=== PATIENT | female | born 1955 | race Caucasian/White ===

== ENCOUNTER 2017-01-06 10:15 | Outpatient (CLI) | payer MEDICARE, BC | END 2017-01-06 10:16 | disposition home or self-care (01) | DX: Z12.31 Encounter for screening mammogram for malignant neoplasm of breast (principal) ==

== ENCOUNTER 2017-01-19 15:02 | Outpatient (CLI) | payer MEDICARE, BC | END 2017-01-19 15:03 | disposition home or self-care (01) | DX: E11.65 Type 2 diabetes mellitus with hyperglycemia (principal) ==

== ENCOUNTER 2017-02-18 07:52 | Day surgery (SDC) | payer MEDICARE, BC ==
[~2017-02-18 07:52] MED LIST: PHENYLEPHRINE 2.5% OPHTH 2 ML DROPS ONE
[2017-02-18] MEDS ORDERED: LACTATED RINGERS 500 ML IV ONE (08:06)
[2017-02-18] MEDS ORDERED: PROPARACAINE 0.5% OPHTH DROPS 15 ML OPTH ONE (09:21)
[2017-02-18] MEDS ORDERED: MIDAZOLAM 2 MG/2 ML VIAL IVP ONE (09:23)
[2017-02-18] MEDS ORDERED: fentaNYL 100 MCG/2 ML VIAL IVP ONE (09:23)
[2017-02-18] MEDS ORDERED: BRIMONIDINE 0.2% OPHTH DROPS 5 ML OPTH ONE (09:30)
[2017-02-18] MEDS ORDERED: EPINEPHrine 1 MG/ML AMP IVP ONE (09:30)
[2017-02-18] MEDS ORDERED: CHONDR SULF/HYALURONATE SYRINGE IO ONE (09:31)
[2017-02-18] MEDS ORDERED: BSS/LIDOCAINE/EPINEPHRINE 1 ML SYRINGE IO ONE ×2 (09:34)
[2017-02-18] MEDS ORDERED: TRIAMCIN/MOXIFLOX/VANCO 1 ML VIAL IO ONE ×2 (09:34)
== END 2017-02-18 07:53 | disposition home or self-care (01) ==
PROC: 08RJ3JZ Replacement of Right Lens with Synthetic Substitute, Percutaneous Approach (ICD-10-PCS; principal; 2017-02-18 09:00)
DX: E11.36 Type 2 diabetes mellitus with diabetic cataract (principal); H25.811 Combined forms of age-related cataract, right eye; Z88.2 Allergy status to sulfonamides; I10 Essential (primary) hypertension; E78.00 Pure hypercholesterolemia, unspecified
CPT/HCPCS: 66984; A9270; V2632

== ENCOUNTER 2017-03-25 06:09 | Day surgery (SDC) | payer MEDICARE, BC ==
[2017-03-25] MEDS ORDERED: PHENYLEPHRINE 2.5% OPHTH 2 ML DROPS ONE (06:25)
[2017-03-25] MEDS ORDERED: PROPARACAINE 0.5% OPHTH DROPS 15 ML OPTH ONE ×3 (06:40→07:26)
[2017-03-25] MEDS ORDERED: PHENYLEPHRINE 2.5% OPHTH 2 ML DROPS OPTH ONE (06:40)
[2017-03-25] MEDS ORDERED: KETOROLAC 0.45% OPHTH DROPS OPTH ONE (06:40)
[2017-03-25] MEDS ORDERED: CYCLOPENTOLATE 1% OPHTH DROPS 2 ML OPTH ONE (06:40)
[2017-03-25] MEDS ORDERED: LACTATED RINGERS 500 ML IV ONE (06:51)
[2017-03-25] MEDS ORDERED: MIDAZOLAM 2 MG/2 ML VIAL IVP ONE (07:05)
[2017-03-25] MEDS ORDERED: EPINEPHrine 1 MG/ML AMP IVP ONE ×2 (07:19→07:26)
[2017-03-25] MEDS ORDERED: BRIMONIDINE 0.2% OPHTH DROPS 5 ML OPTH ONE ×2 (07:19→07:26)
[2017-03-25] MEDS ORDERED: BSS/LIDOCAINE/EPINEPHRINE 1 ML SYRINGE IO ONE ×3 (07:20→07:26)
[2017-03-25] MEDS ORDERED: CHONDR SULF/HYALURONATE SYRINGE IO ONE ×2 (07:20→07:26)
[2017-03-25] MEDS ORDERED: TIMOLOL 0.5% OPHTH DROPS OPTH ONE ×2 (07:20→07:26)
[2017-03-25] MEDS ORDERED: TRIAMCIN/MOXIFLOX/VANCO 1 ML VIAL IO ONE ×3 (07:21→07:26)
[2017-03-25 07:59] VITALS: BP 137/83
--- NOTE | 2017-03-25 08:41 | OPERATIVE REPORT ---
DATE OF SURGERY: 03/25/2017 00:00:00 PREOPERATIVE DIAGNOSIS: Visually significant cataract, left eye. Cataract surgery was performed on e right eye on 18 February 2017. POSTOPERATIVE DIAGNOSIS: Visually significant cataract, left eye. Cataract surgery was performed on t right eye on 18 February 2017. NAME OF PROCEDURE: Phacoemulsification posterior chamber intraocular lens implant, left eye, with las er assist. SURGEON: Boris Meyers MD ANESTHESIA: Monitored anesthesia care. COMPLICATIONS: None. OPERATIVE INDICATIONS: This is a 62-year-old woman with progressive vision loss in the left eye due t o 2+ nuclear sclerotic, 1+ cortical, and trace posterior subcapsular cataract. Best corrected visual acuity was 20/20 with glare to 20/50 in the left eye. Indications for surgery were overall decrease i n vision, difficulty seeing words on the computer screen, difficulty reading, difficulty seeing words , closed captions or game scores on TV, difficulty seeing street signs, difficulty driving in low lig ht or at night, difficulty driving at night because of headlights, and difficulty with glare and brig ht lights in any situation. She was consented at length concerning the risks and benefits of cataract surgery after which she expressed a desire to proceed with surgery. OPERATIVE PROCEDURE: The patient was taken to OR #2 and placed under monitored anesthesia care. A tamiko gical time-out was conducted confirming correct patient, correct procedure and correct surgical site. She was placed under the LenSx laser and her eye docked to the laser interface. The laser performed the capsulotomy, lens softening, phaco wounds, and arcuate keratotomy incisions. She was then moved t o the operating microscope, given topical anesthesia, and then prepped and draped in the usual steril e fashion. The eye was entered at the 6- and 3 o'clock positions. Intracameral Shugarcaine was inject ed into the anterior chamber, followed by Viscoat. The capsulorrhexis flap created by the LenSx laser was removed from the anterior chamber. The nucleus was hydrodissected and phacoemulsified. The deuce x was evacuated using automated infusion aspiration. Provisc was injected in the capsular bag and a 1 6.5 diopter intraocular lens inserted into the bag. Approximately 0.8 mm mixture of triamcinolone, mo xifloxacin, and vancomycin was injected subconjunctivally in the superior quadrant for infection and inflammation prophylaxis. I/A was used to evacuate the viscoelastic materials. The eye was inflated t o physiologic pressure using balanced salt solution and found to be watertight. The patient was taken from the operating room in good condition and given postoperative instructions. JOB #: [id number] EXT JOB #:[id number]
== END 2017-03-25 06:10 | disposition home or self-care (01) ==
LOC: SDS 06:09
PROVIDERS: ATTEND Ophthalmology
PROC: 08RK3JZ Replacement of Left Lens with Synthetic Substitute, Percutaneous Approach (ICD-10-PCS; principal; 2017-03-25 07:30)
DX: H25.812 Combined forms of age-related cataract, left eye (principal); E11.9 Type 2 diabetes mellitus without complications; I10 Essential (primary) hypertension; F41.9 Anxiety disorder, unspecified; J45.909 Unspecified asthma, uncomplicated
CPT/HCPCS: 66984; A9270; V2632

== ENCOUNTER 2017-07-21 10:01 | Outpatient (CLI) | payer MEDICARE, BC ==
[2017-07-21 19:12] LABS: BASOPHILS % (AUTO) 0.7 %; EOSINOPHILS # (AUTO) 0.2 10^3/uL (0.0-0.7); EOSINOPHILS % (AUTO) 4.1 %; HCT - HEMATOCRIT 42.4 % (37.0-47.0); HGB - HEMOGLOBIN 14.3 g/dL (12.0-16.0); LYMPHOCYTES # (AUTO) 1.8 10^3/uL (1.5-3.5); LYMPHOCYTES % (AUTO) 31.5 %; MEAN CORPUSCULAR HEMOGLOBIN 28.6 pg (27.0-31.0); MEAN CORPUSCULAR HGB CONC 33.7 g/dL (32.0-36.0); MEAN CORPUSCULAR VOLUME 84.9 fL (81.0-99.0); MEAN PLATELET VOLUME 7.9 fL (7.9-10.8); MONOCYTES # (AUTO) 0.6 10^3/uL (0.0-1.0); MONOCYTES % (AUTO) 10.4 %; NEUTROPHILS # (AUTO) 3.1 10^3/uL (1.5-6.6); NEUTROPHILS % (AUTO) 53.3 %; NUCLEATED RED BLOOD CELLS AUTO 0.1 /100WBC; RED CELL DISTRIBUTION WIDTH 13.5 % (12.0-15.0); UNCORRECTED WHITE BLOOD COUNT 5.7 x10^3/uL; WHITE BLOOD COUNT 5.7 x10^3/uL (4.8-10.8)
[2017-07-21 19:32] LABS: ALBUMIN/GLOBULIN RATIO 1.1 (1.0-2.2); BILIRUBIN,TOTAL 0.4 mg/dL (0.2-1.0); BUN - BLOOD UREA NITROGEN 11 mg/dL (6-20); CALCIUM 9.5 mg/dL (8.5-10.3); CARBON DIOXIDE - CO2 26 mmol/L (21-32); CHLORIDE 103 mmol/L (101-111); CHOL/HDL RATIO 3.7 (<4.4); CHOLESTEROL 154 mg/dL; CREATININE 0.9 mg/dL (0.4-1.0); GFR - MDRD 63 (>89); GLUCOSE 123 mg/dL (70-100); HDL CHOLESTEROL 42 mg/dL; LDL/HDL RATIO 1.9 (<4.4); POTASSIUM 3.8 mmol/L (3.5-5.0); SODIUM 138 mmol/L (135-145); TOTAL PROTEIN 7.9 g/dL (6.7-8.2); TRIGLYCERIDES 155 mg/dL; VLDL CHOLESTEROL 31 mg/dL
[2017-07-21 19:44] LABS: THYROID STIMULATING HORMONE 7.32 uIU/mL (0.34-5.60)
[2017-07-21 19:51] LABS: HEMOGLOBIN A1C 0.76 g/dL
== END 2017-07-21 10:02 | disposition home or self-care (01) ==
LOC: LAB.WCP 10:01
PROVIDERS: ATTEND Family Medicine
DX: E11.65 Type 2 diabetes mellitus with hyperglycemia (principal)
CPT/HCPCS: 36415; 80053; 80061; 82043; 83036; 84439; 84443; 85025

== ENCOUNTER 2018-05-23 09:42 | Outpatient (CLI) | payer MEDICARE, BC ==
[2018-05-23 13:16] LABS: BASOPHILS # (AUTO) 0.1 10^3/uL (0.0-0.1); BASOPHILS % (AUTO) 0.9 %; EOSINOPHILS # (AUTO) 0.3 10^3/uL (0.0-0.7); LYMPHOCYTES # (AUTO) 1.6 10^3/uL (1.5-3.5); MEAN CORPUSCULAR HEMOGLOBIN 28.8 pg (27.0-31.0); MEAN CORPUSCULAR VOLUME 84.6 fL (81.0-99.0); MEAN PLATELET VOLUME 8.1 fL (7.9-10.8); MONOCYTES # (AUTO) 0.6 10^3/uL (0.0-1.0); MONOCYTES % (AUTO) 8.8 %; NEUTROPHILS # (AUTO) 3.9 10^3/uL (1.5-6.6); NEUTROPHILS % (AUTO) 61.3 %; PLT - PLATELET COUNT 327 10^3/uL (130-450); RED BLOOD COUNT 4.86 10^6/uL (4.20-5.40); RED CELL DISTRIBUTION WIDTH 12.4 % (12.0-15.0); WHITE BLOOD COUNT 6.3 x10^3/uL (4.8-10.8)
[2018-05-23 13:25] LABS: ALBUMIN 4.2 g/dL (3.2-5.5); ALBUMIN/GLOBULIN RATIO 1.2 (1.0-2.2); ALKALINE PHOSPHATASE 91 IU/L (42-121); ALT ALANINE AMINOTRANSFERASE 23 IU/L (10-60); AST ASPARTATE AMINOTRANSFERASE 26 IU/L (10-42); BILIRUBIN,TOTAL 0.7 mg/dL (0.2-1.0); BUN - BLOOD UREA NITROGEN 16 mg/dL (6-20); CALCIUM 8.9 mg/dL (8.5-10.3); CARBON DIOXIDE - CO2 24 mmol/L (21-32); CHLORIDE 102 mmol/L (101-111); CHOL/HDL RATIO 3.5 (<4.4); CHOLESTEROL 182 mg/dL; CREATININE 0.9 mg/dL (0.4-1.0); GFR - MDRD 63 (>89); GLUCOSE 128 mg/dL (70-100); HDL CHOLESTEROL 52 mg/dL; LDL CHOLESTEROL,CALCULATED 99 mg/dL; LDL/HDL RATIO 1.9 (<4.4); SODIUM 136 mmol/L (135-145); THYROID STIMULATING HORMONE 6.6 uIU/mL (0.34-5.60); TOTAL PROTEIN 7.8 g/dL (6.7-8.2); VLDL CHOLESTEROL 31 mg/dL
[2018-05-23 13:43] LABS: HB2 TOTAL 15.1 g/dL; HEMOGLOBIN A1C 0.85 g/dL; HEMOGLOBIN A1C % 7.3 % (4.6-6.2)
[2018-05-23 14:27] LABS: FREE T4 (FREE THYROXINE) 0.74 ng/dL (0.58-1.64)
== END 2018-05-23 09:43 | disposition home or self-care (01) ==
LOC: LAB.WCP 09:42
PROVIDERS: ATTEND Family Medicine
DX: E11.9 Type 2 diabetes mellitus without complications (principal)
CPT/HCPCS: 36415; 80053; 80061; 82043; 83036; 83721; 84439; 84443; 85025

== ENCOUNTER 2018-08-03 10:31 | Outpatient (CLI) | payer MEDICARE, BC ==
--- NOTE | 2018-08-04 13:12 | Mammography Report ---
Reason: SCREENING MAMMO Procedure Date: 08/03/2018 Accession Number: [id number] / [id number] Procedure: MGN - Screening Mammo Dig Bilat CPT Code: FULL RESULT: EXAM: Screening Mammo Dig Bilat DATE: 08/03/2018 10:54 AM CLINICAL HISTORY: 63-year-old female with late childbearing and history of right breast biopsy with benign pathology results as well as cyst removal. TECHNIQUE: Bilateral CC, laterally exaggerated CC, MLO views were obtained. COMPARISON: 01/06/2017, 11/11/2015, 10/16/2014, 08/29/2013. FINDINGS: The breasts demonstrate diffuse fatty replacement bilaterally. Postprocedural changes are seen in the right breast. No suspicious masses, clustered microcalcifications, or regions of architectural distortion are identified. IMPRESSION: Benign findings RECOMMENDATION: Routine annual screening unless otherwise clinically indicated. BIRADS CATEGORY 2: Benign findings STANDARD QUALIFYING STATEMENTS: 1. This examination was reviewed with the aid of Computer-Aided Detection (CAD). 2. A negative or benign imaging report should not delay biopsy if clinically suspicious findings are present. Consider surgical consultation if warrented. More than 5% of cancers are not identified by imaging. 3. Dense breasts may obscure an underlying neoplasm. 4. This examination was reviewed without the aid of 3D breast imaging (tomosynthesis).
== END 2018-08-03 10:32 | disposition home or self-care (01) ==
LOC: DI.N 10:31
DX: Z12.31 Encounter for screening mammogram for malignant neoplasm of breast (principal)
CPT/HCPCS: 77067

== ENCOUNTER 2019-02-27 17:34 | Emergency (ER) | payer MEDICARE, BC ==
--- NOTE | 2019-02-27 20:04 | ED Physician Documentation ---
History of Present Illness - Stated complaint Stated Complaint: UPPER BACK PAIN - Chief complaint Chief Complaint: Back Pain - History obtained from History obtained from: Patient - Additonal information Additional information: Patient is a 64-year-old female presenting with right-sided upper back and neck pain that began several days ago while walking. Patient denies other heavy lifting, exercise, fall, or particular injury. Patient reports that she has thrown out her back before and symptoms today feel similar. Patient has tried anti-inflammatories at home without improvement. Patient has also been applying ice and otherwise saw her chiropractor earlier today, which did not help symptoms.Patient denies overlying skin changes such as rash or redness, as well has midline pain. Patient also denies sensation, strength, range of motion changes to her neck or upper extremities. No other improving or worsening factors noted. Review of Systems Musculoskeletal: reports: Neck pain, Back pain PD PAST MEDICAL HISTORY - Past Medical History Cardiovascular: Hypertension Respiratory: None Endocrine/Autoimmune: Type 2 diabetes GI: None : None HEENT: Chronic vision loss Psych: None Musculoskeletal: Fibromyalgia Derm: Eczema - Past Surgical History Past Surgical History: Yes General: Cholecystectomy /DOCUMENT REVIEW SPECIALIST: Hysterectomy - Present Medications Home Medications: Ambulatory Orders Medication Instructions Recorded Confirmed Pregabalin [Lyrica] 100 mg PO DAILY 12/30/14 03/25/17 RX: Amitriptyline [Elavil] 20 mg PO QPM 12/30/14 03/25/17 RX: Metoprolol Tartrate 50 mg PO BID 08/11/16 03/25/17 RX: Simvastatin 20 mg PO DAILY 10/26/16 03/25/17 Insulin Degludec [Tresiba 40 unit SQ DAILY 02/17/17 03/25/17 Flextouch U-100] Diazepam [Valium] 2 mg PO Q6HR #10 tablet 02/27/19 Hydrocodone/Acetaminophen [Beccaria 1 each PO Q4HR #15 tablet 02/27/19 5-325 Tablet] - Allergies Allergies/Adverse Reactions: Allergies Allergy/AdvReac Type Severity Reaction Status Date / Time sucralfate [From Carafate] Allergy Unknown Verified 03/19/17 09:23 Sulfa (Sulfonamide AdvReac Nausea Verified 03/19/17 09:23 Antibiotics) - Social History Does the pt smoke?: No Smoking Status: Never smoker Does the pt drink ETOH?: No Does the pt have substance abuse?: No PD ED PE NORMAL - General General: Alert and oriented X 3, No acute distress, Well developed/nourished - Neck Neck: Supple, no meningeal sign, No bony TTP, Other (Moderate right sided parspinal muscle spasm with pain with palpation) - Cardiac Cardiac: RRR, No murmur - Respiratory Respiratory: No respiratory distress, Clear bilaterally - Back Back: No spinal TTP, Other (Moderated right sided paraspinal muscle spasm over thoracic spine, no pain, otherwise uncomplicated) - Derm Derm: Normal color, Warm and dry, No rash - Extremities Extremities: No deformity, No tenderness to palpate, Normal ROM s pain - Neuro Neuro: Alert and oriented X 3, No motor deficit, No sensory deficit - Psych Psych: Normal mood, Normal affect Results - Vitals Vitals: Vital Signs - 24 hr 02/27/19 02/27/19 17:45 20:42 Temperature 36.7 C 36.1 C L Heart Rate 83 88 Respiratory 16 18 Rate Blood Pressure 150/65 H 159/77 H O2 Saturation 99 100 Oxygen O2 Source Room air PD MEDICAL DECISION MAKING - ED course Complexity details: considered differential, d/w patient ED course: Most concerning for muscle spasm, torticollis, strain and musculoskeletal injury given location and quality of symptoms, as well as lack of significant traumatic event or other inciting incident. Do not find evidence of indicate epidural abscess, spinal cord injury, or spine injury. No overlying skin changes to indicate cutaneous abscess, cellulitis, shingles, or other infectious process. Patient still has full range of motion, as well as intact motor and sensory to upper extremities. Do not feel that she is experiencing radiculopathy or true torticollis at this time. Discussed use of pain medication and muscle relaxant. Patient is driving home and therefore first dose is not given in the ED. Also discussed other supportive cares, return precautions, and strict follow-up. Patient voiced understanding and is comfortable discharge plan. Departure - Departure Disposition: 01 Home, Self Care Clinical Impression: Muscle spasm Condition: Good Instructions: ED Spasm Muscle Follow-Up: Susanna Brock DO [Primary Care Provider] - Within 3 Days Prescriptions: Hydrocodone/Acetaminophen [Beccaria 5-325 Tablet] 1 each PO Q4HR #15 tablet Diazepam [Valium] 2 mg PO Q6HR #10 tablet Comments: Recommend stretching, massage, heat application. May also use Beccaria and Valium as prescribed for pain and muscle relaxant, respectively. If taking these medications, do not combine with Tylenol, alcohol, driving. If taking Beccaria regularly, recommend use of stool softener or laxative to avoid constipation. If not taking Beccaria, may use ibuprofen or Tylenol. Please follow-up with primary care physician in next 2 to 3 days return to ED sooner if experience worsening symptoms or other concerns. Discharge Date/Time: 02/27/19 20:52
[2019-02-27] MEDS ORDERED: CYCLOBENZAPRINE 10 MG Prepack 2 PO PRN (20:38)
[2019-02-27] MEDS ORDERED: HYDROcod/ACET 5/325 Prepack 4 PO STA (20:38)
[2019-02-27 20:43] VITALS: BP 159/77
== END 2019-02-27 20:52 | disposition home or self-care (01) ==
LOC: ED 17:34
DX: M62.830 Muscle spasm of back (principal); I10 Essential (primary) hypertension; E11.9 Type 2 diabetes mellitus without complications; Z79.4 Long term (current) use of insulin
CPT/HCPCS: 99283

== ENCOUNTER 2019-03-30 08:00 | Outpatient (CLI) | payer MEDICARE, BC ==
[2019-03-30 12:46] LABS: BASOPHILS # (AUTO) 0.1 10^3/uL (0.0-0.1); BASOPHILS % (AUTO) 1.1 %; EOSINOPHILS # (AUTO) 0.8 10^3/uL (0.0-0.7); EOSINOPHILS % (AUTO) 14.5 %; HGB - HEMOGLOBIN 13.9 g/dL (12.0-16.0); LYMPHOCYTES # (AUTO) 1.3 10^3/uL (1.5-3.5); LYMPHOCYTES % (AUTO) 24.9 %; MEAN CORPUSCULAR HEMOGLOBIN 28.4 pg (27.0-31.0); MEAN CORPUSCULAR HGB CONC 33.2 g/dL (32.0-36.0); MEAN CORPUSCULAR VOLUME 85.4 fL (81.0-99.0); MEAN PLATELET VOLUME 7.9 fL (7.9-10.8); MONOCYTES # (AUTO) 0.5 10^3/uL (0.0-1.0); NEUTROPHILS # (AUTO) 2.6 10^3/uL (1.5-6.6); NEUTROPHILS % (AUTO) 49.5 %; PLT - PLATELET COUNT 336 10^3/uL (130-450); RED CELL DISTRIBUTION WIDTH 13.2 % (12.0-15.0); WHITE BLOOD COUNT 5.2 x10^3/uL (4.8-10.8)
[2019-03-30 13:08] LABS: ALBUMIN 4.3 g/dL (3.2-5.5); ALBUMIN/GLOBULIN RATIO 1.3 (1.0-2.2); ALKALINE PHOSPHATASE 94 IU/L (42-121); ALT ALANINE AMINOTRANSFERASE 22 IU/L (10-60); AST ASPARTATE AMINOTRANSFERASE 26 IU/L (10-42); BILIRUBIN,TOTAL 0.4 mg/dL (0.2-1.0); BUN - BLOOD UREA NITROGEN 14 mg/dL (6-20); CHOL/HDL RATIO 3.5 (<4.4); CHOLESTEROL 147 mg/dL; CREATININE 0.8 mg/dL (0.4-1.0); GFR - MDRD 72 (>89); HDL CHOLESTEROL 42 mg/dL; LDL CHOLESTEROL,CALCULATED 86 mg/dL; TOTAL PROTEIN 7.6 g/dL (6.7-8.2); VLDL CHOLESTEROL 19 mg/dL
[2019-03-30 13:10] LABS: HB2 TOTAL 15.1 g/dL; HEMOGLOBIN A1C 0.71 g/dL; HEMOGLOBIN A1C % 6.5 % (4.6-6.2)
[2019-03-30 15:43] LABS: CALCIUM 9.1 mg/dL (8.5-10.3); CARBON DIOXIDE - CO2 24 mmol/L (21-32); CHLORIDE 103 mmol/L (101-111); GLUCOSE 106 mg/dL (70-100); SODIUM 139 mmol/L (135-145)
== END 2019-03-30 23:59 | disposition home or self-care (01) ==
LOC: LAB.WCP 08:00
PROVIDERS: ATTEND Family Medicine
DX: E11.9 Type 2 diabetes mellitus without complications (principal)
CPT/HCPCS: 36415; 80053; 80061; 83036; 83721; 85025

== ENCOUNTER 2019-04-13 09:10 | Outpatient (CLI) | payer MEDICARE, BC ==
--- NOTE | 2019-04-13 13:35 | DEXA Report ---
Reason: POSTMENOPAUSAL STATUS Procedure Date: 04/13/2019 Accession Number: [id number] / [id number] Procedure: DEX - Dexa Spine and/or Hip CPT Code: FULL RESULT: EXAM: Dexa Spine and/or Hip DATE: 04/13/2019 10:05 AM CLINICAL HISTORY: POSTMENOPAUSAL STATUS TECHNIQUE: Dual energy x-ray absorptiometry (DXA) was performed on a [employer] System. Regions measured are the AP Spine, femoral neck, and if needed forearm. COMPARISON: None. In accordance with the International Society for Clinical Densitometry (ISCD) guidelines, data from previous exams may be reanalyzed using current recommendations and techniques. This is done to allow a more accurate basis for comparison with the current study. FINDINGS: The data for the lumbar spine is as follows: BMD (g/cm/cm) T-SCORE Z-SCORE REGION L1 1.026 -0.9 -0.4 L2 1.124 -0.6 -0.2 L3 1.012 -1.6 -1.1 L4 1.006 -1.6 -1.2 TOTAL 1.039 -1.2 -0.7 NOTE: All evaluable vertebrae are used for classification The data for the hip is as follows: BMD (g/cm/cm) T-SCORE Z-SCORE REGION Neck 0.854 -1.3 -0.6 TOTAL 0.938 -0.6 -0.1 NOTE: The femoral neck or total proximal femur, whichever is lowest, is used for classification. IMPRESSION: THE WHO CLASSIFICATION BASED ON THE INTERNATIONAL REFERENCE STANDARD IS OSTEOPENIA. THE FRACTURE RISK IS INCREASED. RECOMMENDATION: Patients with diagnosis of osteoporosis or osteopenia should have regular bone mineral density assessment. For those eligible for Medicare, routine testing is allowed once every 2 years. Testing frequency can be increased for patients who have rapidly progressing disease or for those who are receiving medical therapy to restore bone mass. COMMENT: World Health Organization (WHO) definitions for osteoporosis and osteopenia: NORMAL BMD: T-score at -1.0 or higher, fracture risk is low OSTEOPENIA BMD: T-score between -1.0 and -2.5, fracture risk is increased. OSTEOPOROSIS BMD: T-score at -2.5 or lower, fracture risk is high. National Osteoporosis Foundation recommends: 1. Obtain adequate dietary calcium (at least 1200 mg per day) and vitamin D (400-800 international units per day). 2. Participate, as appropriate, in regular weightbearing and muscle-strengthening exercise. 3. Avoid tobacco use and reduce alcohol and caffeine intake. 4. For more detailed information see the website at www.NOF.org.
== END 2019-04-13 09:11 | disposition home or self-care (01) ==
LOC: DI 09:10
PROVIDERS: ATTEND Family Medicine
DX: M85.89 Other specified disorders of bone density and structure, multiple sites (principal)
CPT/HCPCS: 77080

== ENCOUNTER 2019-08-16 09:57 | Outpatient (CLI) | payer MEDICARE, BC ==
--- NOTE | 2019-08-17 08:56 | Mammography Report ---
Reason: SCREENING MAMMO Procedure Date: 08/16/2019 Accession Number: [id number] / [id number] Procedure: MGN - Screening Mammo Dig Bilat CPT Code: FULL RESULT: EXAM: Screening Mammo Dig Bilat DATE: 08/16/2019 10:56 AM CLINICAL HISTORY: Screening encounter. History of benign right breast biopsy, excisional type. TECHNIQUE: (B) - Bilateral CC and MLO views were obtained. COMPARISON: 08/03/2018 through 11/11/2015. PARENCHYMAL PATTERN: (F) - The breast(s) demonstrate(s) diffuse fatty replacement. FINDINGS: Long-term stability of bilateral intramammary lymph nodes, typically benign. Postsurgical changes in the right breast are redemonstrated. There are no suspicious masses, calcifications, or areas of distortion. IMPRESSION: Benign findings. BI-RADS category 2. RECOMMENDATION: (ANNUAL) - Recommend routine annual screening mammography. BI-RADS CATEGORY: (2) - Benign Findings. STANDARD QUALIFYING STATEMENTS: 1. This examination was not reviewed with the aid of Computer-Aided Detection (CAD). 2. A negative or benign imaging report should not preclude biopsy if clinically suspicious findings are present. 3. Dense breasts may obscure an underlying neoplasm. 4. This examination was reviewed without the aid of 3D breast imaging (tomosynthesis).
== END 2019-08-16 09:58 | disposition home or self-care (01) ==
LOC: DI.N 09:57
DX: Z12.31 Encounter for screening mammogram for malignant neoplasm of breast (principal)
CPT/HCPCS: 77067

== ENCOUNTER 2019-09-25 08:00 | Outpatient (CLI) | payer MEDICARE, BC ==
[2019-09-25 19:06] LABS: CALCIUM 9.2 mg/dL (8.5-10.3); CREATININE 0.8 mg/dL (0.4-1.0)
[2019-09-25 19:23] LABS: CREATININE,URINE 27.7 mg/dL
[2019-09-25 19:25] LABS: HEMOGLOBIN A1C 0.62 g/dL; HEMOGLOBIN A1C % 5.9 % (4.6-6.2)
[2019-09-25 20:21] LABS: MICROALBUMIN,URINE < 0.2 mg/dL (0-300.0)
== END 2019-09-25 23:59 | disposition home or self-care (01) ==
LOC: LAB.WCP 08:00
PROVIDERS: ATTEND Family Medicine
DX: E11.9 Type 2 diabetes mellitus without complications (principal)
CPT/HCPCS: 36415; 80048; 82043; 82570; 83036

== ENCOUNTER 2020-04-01 08:00 | Outpatient (CLI) | payer MEDICARE, BC ==
[2020-04-01 18:04] LABS: ALBUMIN 4.2 g/dL (3.2-5.5); ALBUMIN/GLOBULIN RATIO 1.2 (1.0-2.2); ALKALINE PHOSPHATASE 88 IU/L (42-121); ALT ALANINE AMINOTRANSFERASE 25 IU/L (10-60); AST ASPARTATE AMINOTRANSFERASE 25 IU/L (10-42); BILIRUBIN,TOTAL 0.8 mg/dL (0.2-1.0); BUN - BLOOD UREA NITROGEN 11 mg/dL (6-20); CALCIUM 9.1 mg/dL (8.5-10.3); CARBON DIOXIDE - CO2 27 mmol/L (21-32); CHLORIDE 97 mmol/L (101-111); CHOL/HDL RATIO 3.6 (<4.4); CHOLESTEROL 197 mg/dL; CREATININE 0.7 mg/dL (0.4-1.0); GLUCOSE 89 mg/dL (70-100); HDL CHOLESTEROL 55 mg/dL; LDL CHOLESTEROL,CALCULATED 124 mg/dL; LDL/HDL RATIO 2.3 (<4.4); SODIUM 135 mmol/L (135-145); TOTAL PROTEIN 7.6 g/dL (6.7-8.2); VLDL CHOLESTEROL 18 mg/dL
[2020-04-01 18:32] LABS: HB2 TOTAL 14.8 g/dL; HEMOGLOBIN A1C 0.5 g/dL; HEMOGLOBIN A1C % 5.2 % (4.6-6.2)
== END 2020-04-01 23:59 | disposition home or self-care (01) ==
LOC: LAB.WCP 08:00
PROVIDERS: ATTEND Family Medicine
DX: E11.9 Type 2 diabetes mellitus without complications (principal)
CPT/HCPCS: 36415; 80053; 80061; 83036; 83721